=== PATIENT | female | born 1970 | race Caucasian/White ===

== ENCOUNTER 2016-11-14 10:10 | Observation (INO) | payer BC ==
[2016-11-09 11:03] VITALS: Ht 162.6 cm; Wt 55.1 kg
[2016-11-09 11:05] VITALS: BP_SYST 98; TEMP 97.4
[2016-11-14] VITALS (15 sets, daily range): BP systolic 84–126; RESP 11–18; TEMP 97.1–98.2
[~2016-11-14] VITALS: Ht 162.6 cm; Wt 55.1 kg
[~2016-11-14 10:10] MED LIST: ACETAMINOPHEN 1,000 MG/100 ML IV ONE; BACITRACIN 50,000 UNITS INJ IRRIG ONE; BUPIVACA/EPI 0.5% PF 10 ML NERVEBLOCK ONE; DEXAMETHASONE 4 MG/ML VIAL IV ONE; DILAUDID 1 MG/ML AMP IV ONE; FENTANYL 100 MCG/2 ML AMP IV ONE; GELATIN SPONGE 12 CM2 TOPICAL ONE; GLYCOPYRROLATE 0.2 MG/ML VIAL IV ONE; LIDOCAINE 2% SYR 5 ML IV ONE; NEOSTIGMINE 10 MG/10 ML VIAL IV ONE; ONDANSETRON 4 MG VIAL IV PUSH ONE; PROPOFOL 20 ML PER ML IV ONE; ROCURONIUM 50 MG VIAL IV ONE; THROMBIN 5000 UNIT KIT TOPICAL ONE
[2016-11-14] MEDS ORDERED: LACT RINGERS 1,000 ML IV SCH (10:20)
[2016-11-14] MEDS ORDERED: GLYCOPYRROLATE 0.2 MG/ML VIAL IV ONE (10:20)
[2016-11-14] MEDS ORDERED: LIDOCAINE 1% BUFFERED 1 ML SYR INTRADERM PRN (10:20)
[2016-11-14] MEDS ORDERED: MIDAZOLAM 2 MG/2 ML INJ IV ONE (10:20)
[2016-11-14] MEDS ORDERED: CEFAZOLIN 2,000 MG in SODIUM CHLORIDE 0.9% 100 ML IV ONE (10:30)
[2016-11-14] MEDS ORDERED: MORPHINE 4 MG/ML SYR IV PRN ×2 (12:30→13:40)
[2016-11-14] MEDS ORDERED: ONDANSETRON 4 MG VIAL IV PRN ×2 (12:30→13:40)
[2016-11-14] MEDS ORDERED: MORPHINE 2 MG/ML SYR IV PRN ×2 (12:30→13:40)
[2016-11-14] MEDS ORDERED: OXYCODONE 5 MG TAB PO PRN (12:30)
[2016-11-14] MEDS ORDERED: MEPERIDINE 25 MG/ML IV PRN (12:30)
[2016-11-14] MEDS ORDERED: DILAUDID 1 MG/ML AMP IV PRN (12:30)
[2016-11-14] MEDS ORDERED: OXYCODONE/APAP 5/325 TAB PO PRN ×2 (13:40)
[2016-11-14] MEDS ORDERED: SODIUM CHLORIDE 0.9% 1,000 ML IV SCH (13:40)
[2016-11-14] MEDS ORDERED: CHLORASEPTIC 180 ML BTL PO PRN (13:40)
[2016-11-14] MEDS: CEFAZOLIN 2,000 MG in SODIUM CHLORIDE 0.9% 100 ML IV SCH (20:08)
[2016-11-14] MEDS ORDERED: DOCUSATE SOD 100 MG CAP PO SCH (21:00)
[2016-11-15 03:27] VITALS: BP_SYST 105; RESP 18; TEMP 97.9
[2016-11-15] MEDS: CEFAZOLIN 2,000 MG in SODIUM CHLORIDE 0.9% 100 ML IV SCH (03:36)
[2016-11-15 07:21] VITALS: BP_SYST 123; RESP 15; TEMP 98.7
[2016-11-15 10:10] VITALS: BP_SYST 123; RESP 15; TEMP 98.7
[2016-11-15 11:06] VITALS: BP_SYST 107; RESP 16; TEMP 98.6
== END 2016-11-15 12:33 | disposition home or self-care (01) ==
LOC: SDS 10:24 → ENPENDDIS 10:24 → PREINTOOBSV 12:41 → 5THE 14:53
PROVIDERS: ADMIT Neurological Surgery; ATTEND Neurological Surgery
DX: M50.123 Cervical disc disorder at C6-C7 level with radiculopathy (principal)
CPT/HCPCS: 76000; 81025